=== PATIENT | male | born 1995 | race Asian ===

== ENCOUNTER 2018-01-18 00:49 | Emergency (ER) | payer SELFPAY ==
[~2018-01-18] VITALS: Ht 170.2 cm; Wt 81.6 kg
[2018-01-18 01:41] VITALS: BP 143/68
--- NOTE | 2018-01-18 02:33 | Emergency Room Report ---
History of Present Illness General Chief Complaint: Alcohol Intoxication Source: Patient, EMS Present Illness HPI Is a 22-year-old [place] male brought in by EMS for alcohol intoxication. He was picked up at a bar by Andrei. Who is vomiting in the taxi so they called 911. Patient was vomiting here. Unable to get any history because of his intoxication. There was no trauma. Allergies: Coded Allergies: No Known Allergies (Unverified , 01/18/18) Patient History Past Medical History: see triage record, old chart reviewed Past Surgical History: unable to obtain Pertinent Family History: unable to obtain Social History: Reports: alcohol use Immunizations: other Reviewed Nursing Documentation: PMH: Agreed; PSxH: Agreed Nursing Documentation-PMH Past Medical History: No Stated History Review of Systems Eye: Denies: eye pain, blurred vision ENT: Denies: ear pain, nose congestion, throat swelling Respiratory: Denies: cough, shortness of breath Cardiovascular: Denies: chest pain, palpitations Gastrointestinal: Denies: abdominal pain, diarrhea, nausea, vomiting Musculoskeletal: Denies: back pain, joint pain Skin: Denies: rash Neurological: Denies: headache, numbness Endocrine: Denies: increased thirst, increased urine Hematologic/Lymphatic: Denies: easy bruising All Other Systems: negative except mentioned in HPI Physical Exam Vital Signs Date Time Temp Pulse Resp B/P (MAP) Pulse Ox O2 Delivery O2 Flow Rate FiO2 01/18/18 00:16 98.0 72 18 143/68 98 Room Air 98.1 vitals normal Sp02 EP Interpretation: reviewed, normal General Appearance: other - very intoxicated Head: normocephalic, atraumatic Eyes: bilateral eye PERRL, bilateral eye EOMI ENT: normal pharynx Neck: full range of motion, supple, no meningismus Respiratory: chest non-tender, lungs clear, normal breath sounds Cardiovascular #1: regular rate, rhythm, no murmur Gastrointestinal: normal bowel sounds, non tender, no mass, no organomegaly, no bruit, non-distended Musculoskeletal: back normal, normal range of motion Neurologic: grossly normal Psychiatric: mood/affect normal Skin: warm/dry Medical Decision Making Diagnostic Impression: Primary Impression: Acute alcoholic intoxication Qualified Codes: F10.929 - Alcohol use, unspecified with intoxication, unspecified ER Course Patient with alcohol intoxication. No trauma to warrant CT scan or x-rays. We' ll serve until clinical sobriety. Last Vital Signs Date Time Temp Pulse Resp B/P (MAP) Pulse Ox O2 Delivery O2 Flow Rate FiO2 01/18/18 01:41 98.1 78 18 143/68 98 Room Air 98.1 Status: improved Disposition: HOME, SELF-CARE Condition: Stable Patient Instructions: Alcohol Intoxication, [id number] Additional Instructions: Stop drinking to excess. Follow-up with your Dr. in 7 days as needed. Return if worse. JOSE HERNANDEZ M.D. Jan 18, 2018 02:33
[2018-01-18 03:35] VITALS: BP 140/66
[2018-01-18 04:03] VITALS: BP 128/80
== END 2018-01-18 04:14 | disposition home or self-care (01) ==
LOC: EDBD 00:49 → EMR 04:14
DX: F10.129 Alcohol abuse with intoxication, unspecified (principal)
CPT/HCPCS: 36415; 96360; 99284; G0480; 80329